=== PATIENT | female | born 1990 | race African-American/Black ===

== ENCOUNTER 2019-04-11 21:24 | Emergency (ER) | payer MEDICAID ==
[~2019-04-11] VITALS: Ht 170.2 cm; Wt 58.1 kg
[2019-04-11 21:46] VITALS: Ht 170.2 cm; Wt 58.1 kg
[2019-04-11 23:26] LABS: CALCIUM 9.2 mg/dL (8.5-10.1); CARBON DIOXIDE 20.1 mmol/L (21-32); CHLORIDE SERUM 102 mmol/L (98-107); GFR1 > 60 mL/min; GLUCOSE SERUM 119 mg/dL (74-106); POTASSIUM SERUM 3.4 mmol/L (3.5-5.1); SODIUM SERUM 140 mmol/L (136-145)
[2019-04-11 23:29] LABS: BASOPHIL % 0.2 % (0-2); PLATELET COUNT 306 x10^3mcL (130-400)
[2019-04-11 23:30] LABS: ALBUMIN 4.4 g/dL (3.4-5.0); ALKALINE PHOSPHATASE 59 U/L (46-116); ALT/SGPT 18 U/L (14-59); AMYLASE 78 U/L (25-115); AST/SGOT 18 U/L (15-37); BILIRUBIN TOTAL 0.6 mg/dL (0.20-1.00); LIPASE 71 IU/L (73-393)
[2019-04-11 23:31] LABS: TOTAL PROTEIN, SERUM 8.4 g/dL (6.4-8.2)
[2019-04-11 23:39] LABS: RED CELL DISTRIBUTION WIDTH 15.3 % (11.5-14.5)
[2019-04-12 02:15] VITALS: BP 122/75
== END 2019-04-12 02:15 | disposition home or self-care (01) ==
LOC: ED 21:24
PROVIDERS: Emergency Medicine
DX: R11.2 Nausea with vomiting, unspecified (principal); R10.9 Unspecified abdominal pain; R07.89 Other chest pain; Z88.6 Allergy status to analgesic agent
CPT/HCPCS: J1885; J2405; J7030

== ENCOUNTER 2019-04-12 20:30 | Emergency (ER) | payer MEDICAID ==
[~2019-04-12] VITALS: Ht 170.2 cm; Wt 57.6 kg
[2019-04-12 20:42] VITALS: Ht 170.2 cm; Wt 57.6 kg
[2019-04-12 22:17] LABS: BASOPHIL % 0.4 % (0-2); PLATELET COUNT 324 x10^3mcL (130-400)
[2019-04-12 22:18] LABS: RED CELL DISTRIBUTION WIDTH 15.4 % (11.5-14.5)
[2019-04-12 22:43] LABS: CALCIUM 8.9 mg/dL (8.5-10.1); CARBON DIOXIDE 22.9 mmol/L (21-32); CHLORIDE SERUM 103 mmol/L (98-107); CREATININE SERUM 0.8 mg/dL (0.6-1.0); GFR1 > 60 mL/min; GLUCOSE SERUM 97 mg/dL (74-106); POTASSIUM SERUM 3.4 mmol/L (3.5-5.1); SODIUM SERUM 140 mmol/L (136-145)
[2019-04-12 22:47] LABS: ALBUMIN 4.2 g/dL (3.4-5.0); ALKALINE PHOSPHATASE 54 U/L (46-116); ALT/SGPT 19 U/L (14-59); AST/SGOT 21 U/L (15-37); BILIRUBIN TOTAL 0.7 mg/dL (0.20-1.00); LIPASE 89 IU/L (73-393); TOTAL PROTEIN, SERUM 8.1 g/dL (6.4-8.2)
[2019-04-13 01:34] LABS: microscopic required? YES; urine erythrocyte 3+ (NEGATIVE)
[2019-04-13 01:43] LABS: AMPHETAMINE QUAL UR NONE DETECTED (See below)
[2019-04-13 03:59] VITALS: BP 119/53
== END 2019-04-13 03:59 | disposition home or self-care (01) ==
LOC: ED 20:30
PROVIDERS: Emergency Medicine
DX: F12.988 Cannabis use, unspecified with other cannabis-induced disorder (principal); E87.6 Hypokalemia; D64.9 Anemia, unspecified; Z88.6 Allergy status to analgesic agent; Z98.890 Other specified postprocedural states
CPT/HCPCS: J1630; J2060

== ENCOUNTER 2020-05-23 13:08 | Emergency (ER) | payer MEDICAID, SELFPAY ==
[~2020-05-23] VITALS: Ht 170.2 cm; Wt 48.1 kg
[2020-05-23 13:10] VITALS: Ht 170.2 cm; Wt 48.1 kg
[2020-05-23 14:40] VITALS: BP 132/85
== END 2020-05-23 14:40 | disposition home or self-care (01) ==
LOC: ED 13:08
DX: R11.10 Vomiting, unspecified (principal); R19.7 Diarrhea, unspecified; Z20.828 Contact with and (suspected) exposure to other viral communicable diseases; Z88.5 Allergy status to narcotic agent
CPT/HCPCS: U0003